=== PATIENT | male | born 1990 | race Caucasian/White ===

== ENCOUNTER 2018-05-02 21:33 | Emergency (ER) | payer OTHER ==
[2018-05-02 22:04] LABS: BASOPHILS # (AUTO) 0.1 10^3/uL (0.0-0.1); EOSINOPHILS # (AUTO) 0.2 10^3/uL (0.0-0.7); EOSINOPHILS % (AUTO) 2.8 %; HGB - HEMOGLOBIN 15.9 g/dL (14.0-18.0); LYMPHOCYTES # (AUTO) 3.9 10^3/uL (1.5-3.5); LYMPHOCYTES % (AUTO) 49.8 %; MEAN CORPUSCULAR HEMOGLOBIN 29.9 pg (27.0-31.0); MEAN CORPUSCULAR HGB CONC 34.4 g/dL (32.0-36.0); MEAN CORPUSCULAR VOLUME 86.7 fL (80.0-94.0); MEAN PLATELET VOLUME 8.7 fL (7.4-11.4); MONOCYTES # (AUTO) 0.9 10^3/uL (0.0-1.0); MONOCYTES % (AUTO) 11.9 %; NEUTROPHILS # (AUTO) 2.7 10^3/uL (1.5-6.6); NEUTROPHILS % (AUTO) 34.5 %; PLT - PLATELET COUNT 239 10^3/uL (130-450); RED BLOOD COUNT 5.32 10^6/uL (4.70-6.10); RED CELL DISTRIBUTION WIDTH 13.1 % (12.0-15.0); WHITE BLOOD COUNT 7.9 x10^3/uL (4.8-10.8)
[2018-05-02 22:11] LABS: ALBUMIN 4.1 g/dL (3.2-5.5); ALBUMIN/GLOBULIN RATIO 1.1 (1.0-2.2); BILIRUBIN,TOTAL 0.8 mg/dL (0.2-1.0); CALCIUM 9.4 mg/dL (8.5-10.3); TOTAL PROTEIN 7.9 g/dL (6.7-8.2)
--- NOTE | 2018-05-02 23:06 | ED Physician Documentation ---
PD HPI CHEST PAIN - Stated complaint Stated Complaint: RAPID HEART BEAT/NAUSEA - Chief complaint Chief Complaint: Cardiac - History obtained from History obtained from: Patient - History of Present Illness Timing - onset: Last night Timing - onset during: Rest Timing - details: Abrupt onset, Intermittant Pain level max: 9 Pain level now: 2 Quality: Pain Location: Left chest, Other (left chest at present, but varies in location since starting 2 days ago (left, right, midline chest, sometimes across entire chest)) Radiation: Other (paresthesias in upper extremities (either, sometimes both)) Improved by: Nothing Worsened by: Exertion Associated symptoms: No: Shortness of air, Diaphoresis, Nausea, Vomiting Similar symptoms before: Has not had sx before Recently seen: Not recently seen Review of Systems Constitutional: reports: Reviewed and negative Cardiac: reports: Chest pain / pressure. denies: Palpitations, Pedal edema, Calf pain Respiratory: reports: Reviewed and negative GI: reports: Reviewed and negative Skin: denies: Rash PD PAST MEDICAL HISTORY - Past Medical History Past Medical History: No - Present Medications Home Medications: Ambulatory Orders Medication Instructions Recorded Confirmed No Known Home Medications [No 05/02/18 05/02/18 Known Home Medications] - Allergies Allergies/Adverse Reactions: Allergies Allergy/AdvReac Type Severity Reaction Status Date / Time No Known Drug Allergies Allergy Verified 05/02/18 21:44 - Social History Does the pt smoke?: No Smoking Status: Never smoker PD ED PE NORMAL - Vitals Vital signs reviewed: Yes - General General: Alert and oriented X 3, Well developed/nourished - HEENT HEENT: Moist mucous membranes - Cardiac Cardiac: RRR, No murmur, No gallop, No rub - Respiratory Respiratory: No respiratory distress, Clear bilaterally - Abdomen Abdomen: Normal bowel sounds, Soft, Non tender, Non distended - Back Back: No CVA TTP - Extremities Extremities: No edema Results - Vitals Vitals: Oxygen O2 Source Room air - EKG (time done) No standard instances Rate: Rate (enter#) (77) Rhythm: NSR [place]: Normal Intervals: Normal [place] QRS: Normal Ischemia: Normal ST segments - Labs Labs: Laboratory Tests 05/02/18 05/02/18 05/02/18 21:55 21:55 21:55 WBC 7.9 RBC 5.32 Hgb 15.9 Hct 46.1 MCV 86.7 MCH 29.9 MCHC 34.4 RDW 13.1 Plt Count 239 MPV 8.7 Neut # (Auto) 2.7 Lymph # (Auto) 3.9 H [place] # (Auto) 0.9 Eos # (Auto) 0.2 Baso # (Auto) 0.1 Absolute Nucleated RBC 0.01 Nucleated RBC % 0.1 Sodium 134 L Potassium 3.3 L Chloride 100 L Carbon Dioxide 24 Anion Gap 10.0 BUN 14 Creatinine 1.0 Estimated GFR (MDRD) 88 L Glucose 115 H Calcium 9.4 Total Bilirubin 0.8 AST 42 ALT 81 H Alkaline Phosphatase 59 Troponin I < 0.04 Total Protein 7.9 Albumin 4.1 Globulin 3.8 Albumin/Globulin Ratio 1.1 Lipase 29 - Rads (name of study) chest xray Radiology: Prelim report reviewed, See rad report PD MEDICAL DECISION MAKING - ED course Complexity details: reviewed results, re-evaluated patient, considered differential, d/w patient - Sepsis Event Vital Signs: Oxygen O2 Source Room air Departure - Departure Disposition: 01 Home, Self Care Clinical Impression: Chest pain Qualifiers: Chest pain type: unspecified Qualified Code(s): R07.9 - Chest pain, unspecified Condition: Good Instructions: ED Chest Pain Atypical Unkn Cause Follow-Up: [facility] [Provider Group] Discharge Date/Time: 05/02/18 23:44
--- NOTE | 2018-05-02 23:34 | XRAY Report ---
Procedure Date: 05/02/2018 Accession Number: [id number] / [id number] Procedure: XR - Chest 1 View X-Ray CPT Code: 85337 FULL RESULT: EXAM: CHEST RADIOGRAPHY EXAM DATE: 05/02/2018 11:17 PM. CLINICAL HISTORY: Chest pain. COMPARISON: None. TECHNIQUE: 1 view. FINDINGS: Lungs/Pleura: No focal opacities evident. No pleural effusion. No pneumothorax. Mediastinum: Within exam limitations, the cardiomediastinal contour is normal. Other: None. IMPRESSION: Normal single view chest. RADIA
[2018-05-02 23:44] VITALS: BP 132/76
== END 2018-05-02 23:44 | disposition home or self-care (01) ==
LOC: ED 21:33
DX: R07.9 Chest pain, unspecified (principal)
CPT/HCPCS: 36415; 71045; 80053; 83690; 84484; 85025; 93005; 99283

== ENCOUNTER 2018-05-06 13:40 | Emergency (ER) | payer OTHER ==
[2018-05-06] MEDS ORDERED: KETOROLAC 60 MG/2 ML VIAL IVP STA (13:59)
--- NOTE | 2018-05-06 14:04 | ED Physician Documentation ---
History of Present Illness - Stated complaint Stated Complaint: MID CHEST PX/SOA/STOMACH PX - Chief complaint Chief Complaint: Cardiac - Additonal information Additional information: hx from pt 27 y/o m no sig fhx CAD, no HTN, no DM, borderline HLD, prior smoker to ED for cp and soa and feeling light headed (worse with moving head) since eating fajitas last night about 7 PM no fever no cough no NVD no leg swelling no recent travel seen for similar sx last week - per pt wup was neg kids sick with URI sx injured his sternum a few weeks ago, seemed better, now this Review of Systems Constitutional: denies: Fever, Chills Cardiac: reports: Chest pain / pressure Respiratory: reports: Dyspnea. denies: Cough GI: reports: Abdominal Pain (upper). denies: Nausea, Vomiting, Diarrhea Skin: reports: Rash (heat rash since going to the [place]) Musculoskeletal: denies: Back pain, Extremity pain, Extremity swelling Endocrine: denies: Easy bruising / bleeding Immunocompromised: denies: Immunocompromised PD PAST MEDICAL HISTORY - Present Medications Home Medications: Ambulatory Orders Medication Instructions Recorded Confirmed Ibuprofen [Motrin] 400 mg PO Q6H PRN #30 tablet 05/06/18 Meclizine [Antivert] 25 mg PO Q6H PRN #20 tablet 05/06/18 raNITIdine [Zantac] 150 mg PO BID #60 tablet 05/06/18 - Allergies Allergies/Adverse Reactions: Allergies Allergy/AdvReac Type Severity Reaction Status Date / Time No Known Drug Allergies Allergy Verified 05/06/18 13:51 - Social History Does the pt smoke?: No Smoking Status: Never smoker Does the pt have substance abuse?: No - POLST Patient has POLST: No PD ED PE NORMAL - Vitals Vital signs reviewed: Yes - Cardiac Cardiac: RRR - Respiratory Respiratory: No respiratory distress, Clear bilaterally - Abdomen Abdomen: Soft, Other (mild upper abd TTP) - Derm Derm: Other (follicular type rash to torso, no petecchiae purpura vesicles shingles) - Extremities Extremities: No edema, No calf tenderness / cord - Neuro Neuro: Alert and oriented X 3 Results - Vitals Vitals: Vital Signs - 24 hr 05/06/18 05/06/18 05/06/18 13:48 14:56 16:19 Temperature 36.4 C L Heart Rate 71 69 57 L Respiratory 16 11 L 20 Rate Blood Pressure 144/84 H 138/87 H 127/85 H O2 Saturation 96 98 98 Oxygen O2 Source Room air - EKG (time done) 1350 Rate: Rate (enter#) Rhythm: NSR [place]: Normal Ischemia: Other (isolated Q in III) - Labs Labs: Laboratory Tests 05/06/18 05/06/18 05/06/18 14:10 14:10 14:10 WBC 5.6 RBC 5.33 Hgb 15.9 Hct 45.5 MCV 85.3 MCH 29.9 MCHC 35.0 RDW 12.9 Plt Count 203 MPV 8.9 Neut # (Auto) 2.6 Lymph # (Auto) 2.3 [place] # (Auto) 0.5 Eos # (Auto) 0.1 Baso # (Auto) 0.0 Absolute Nucleated RBC 0.00 Nucleated RBC % 0.0 Sodium 138 Potassium 3.7 Chloride 104 Carbon Dioxide 27 Anion Gap 7.0 BUN 14 Creatinine 0.9 Estimated GFR (MDRD) 100 Glucose 111 H Calcium 9.4 Total Bilirubin 1.0 AST 28 ALT 84 H Alkaline Phosphatase 55 Troponin I < 0.04 Total Protein 7.8 Albumin 4.0 Globulin 3.8 Albumin/Globulin Ratio 1.1 Lipase 27 - Rads (name of study) CXR Radiology: See rad report (neg) RUQ sono Radiology: See rad report (no biliary dx) CTPA Radiology: See rad report (no PE, atelectasis) PD MEDICAL DECISION MAKING - Sepsis Event Vital Signs: Vital Signs - 24 hr 05/06/18 05/06/18 05/06/18 13:48 14:56 16:19 Temperature 36.4 C L Heart Rate 71 69 57 L Respiratory 16 11 L 20 Rate Blood Pressure 144/84 H 138/87 H 127/85 H O2 Saturation 96 98 98 Oxygen O2 Source Room air Departure - Departure Disposition: 01 Home, Self Care Clinical Impression: Pleurisy Condition: Good Instructions: ED Chest Pain Pleurisy Follow-Up: Rai Sinclair ARNP [Primary Care Provider] - Prescriptions: Ibuprofen [Motrin] 400 mg PO Q6H PRN #30 tablet PRN Reason: Pain Meclizine [Antivert] 25 mg PO Q6H PRN #20 tablet PRN Reason: Dizziness raNITIdine [Zantac] 150 mg PO BID #60 tablet Comments: All of the tests came back fine today The EKG and blood work indicate you have not had a heart attack The chest xray did not show pneumonia or a collapsed lung or any sternal deformity The ultrasound did not show any gallstones The CT scan did not show an aneurysm or tear of your aorta nor a blood clot in your lung. I suspect the pain is due to inflammation of the lining of your chest wall after your recent sternal injury - this is best treated with non steroidal anti- inflammatories such as motrin and a device called an incentive spirometer to help you breathe deeply And sometimes acid reflux can contribute to chest pain so i have also prescribed zantac I also prescribed meclizine to help with the sense of being light headed when you move your head I think it is safe for you to go home [place]
[2018-05-06 14:31] LABS: BASOPHILS % (AUTO) 0.5 %; EOSINOPHILS # (AUTO) 0.1 10^3/uL (0.0-0.7); EOSINOPHILS % (AUTO) 2.1 %; HGB - HEMOGLOBIN 15.9 g/dL (14.0-18.0); LYMPHOCYTES # (AUTO) 2.3 10^3/uL (1.5-3.5); LYMPHOCYTES % (AUTO) 40.3 %; MEAN CORPUSCULAR HEMOGLOBIN 29.9 pg (27.0-31.0); MEAN CORPUSCULAR VOLUME 85.3 fL (80.0-94.0); MEAN PLATELET VOLUME 8.9 fL (7.4-11.4); MONOCYTES # (AUTO) 0.5 10^3/uL (0.0-1.0); MONOCYTES % (AUTO) 9.8 %; NEUTROPHILS # (AUTO) 2.6 10^3/uL (1.5-6.6); NEUTROPHILS % (AUTO) 47.3 %; PLT - PLATELET COUNT 203 10^3/uL (130-450); RED BLOOD COUNT 5.33 10^6/uL (4.70-6.10); RED CELL DISTRIBUTION WIDTH 12.9 % (12.0-15.0); WHITE BLOOD COUNT 5.6 x10^3/uL (4.8-10.8)
--- NOTE | 2018-05-06 14:31 | XRAY Report ---
Procedure Date: 05/06/2018 Accession Number: [id number] / [id number] Procedure: XR - Chest 2 View X-Ray CPT Code: 86718 FULL RESULT: EXAM: CHEST RADIOGRAPHY EXAM DATE: 05/06/2018 02:20 PM. CLINICAL HISTORY: Chest pain. COMPARISON: CHEST 1 VIEW 05/02/2018. TECHNIQUE: 2 views. FINDINGS: Lungs/Pleura: No focal opacities evident. No pleural effusion. No pneumothorax. Normal volumes. Mediastinum: Heart and mediastinal contours are unremarkable. Other: None. IMPRESSION: Negative chest RADIA
[2018-05-06 14:43] LABS: ALBUMIN/GLOBULIN RATIO 1.1 (1.0-2.2); CALCIUM 9.4 mg/dL (8.5-10.3); CREATININE 0.9 mg/dL (0.6-1.2); TOTAL PROTEIN 7.8 g/dL (6.7-8.2)
[2018-05-06] MEDS ORDERED: SODIUM CHLORIDE 0.9% 1,000 ML IV ONE (15:48)
--- NOTE | 2018-05-06 15:49 | Ultrasound Report ---
Procedure Date: 05/06/2018 Accession Number: [id number] / [id number] Procedure: US - Abdomen Limited CPT Code: FULL RESULT: EXAM: ABDOMEN ULTRASOUND LIMITED, RUQ EXAM DATE: 05/06/2018 03:33 PM. CLINICAL HISTORY: Abdominal pain after eating COMPARISON: None. TECHNIQUE: Real-time scanning was performed with static images obtained. FINDINGS: Liver: Heterogeneous, echogenic parenchyma, compatible with steatosis, with small geographic areas of fatty sparing adjacent to the gallbladder. Main portal vein flow: Hepatopetal. Gallbladder: Normal. No stones, wall thickening, or sonographic Merino's sign. Biliary System: CBD measures 2-3 mm. No intrahepatic or extrahepatic ductal dilatation. Right Kidney: 10.7 cm in length. Normal parenchymal echotexture. No visualized shadowing stones or hydronephrosis. IMPRESSION: 1. Steatotic liver. 2. Otherwise unremarkable right upper quadrant ultrasound. Specifically, no cholelithiasis or sonographic evidence for acute cholecystitis. RADIA
[2018-05-06] MEDS ORDERED: MECLIZINE 12.5 MG TABLET PO STA (17:14)
[2018-05-06] MEDS ORDERED: IOPAMIDOL-300 100 ML VIAL ONE (17:33)
[2018-05-06] MEDS ORDERED: IOPAMIDOL-300 100 ML VIAL IVP ONE (18:02)
--- NOTE | 2018-05-06 18:30 | CT Report ---
Procedure Date: 05/06/2018 Accession Number: [id number] / [id number] Procedure: CT - Chest Angio (PE) CPT Code: FULL RESULT: EXAM: CT ANGIOGRAM CHEST EXAM DATE: 05/06/2018 06:00 PM. CLINICAL HISTORY: Pleuritic cp. COMPARISON: None. TECHNIQUE: Routine helical imaging was performed through the chest in the pulmonary arterial phase. IV Contrast: 80 cc Isovue 300. Reconstructions: Coronal 3-D MIP reconstructions.Sagittal and coronal. In accordance with CT protocol optimization, one or more of the following dose reduction techniques were utilized for this exam: automated exposure control, adjustment of mA and/or KV based on patient size, or use of iterative reconstructive technique. FINDINGS: Pulmonary Arteries: Diagnostic quality: Adequate through the segmental arteries. No evidence for acute or chronic pulmonary emboli. The main pulmonary artery is normal in size. Lungs/Pleura: No consolidative process. There is mild linear basilar atelectasis. Negative for pleural effusion and pneumothorax. Airways appear normal. Mediastinum: Normal. No cardiac enlargement or adenopathy. Thoracic Aorta: Unremarkable. Upper Abdomen: Unremarkable. Other: None. IMPRESSION: 1. Negative for pulmonary embolism. 2. Mild basilar atelectasis. Lungs otherwise clear. RADIA
[2018-05-06 19:45] VITALS: BP 157/90
== END 2018-05-06 19:54 | disposition home or self-care (01) ==
LOC: ED 13:40
DX: R09.1 Pleurisy (principal); J98.11 Atelectasis; S29.9XXA Unspecified injury of thorax, initial encounter
CPT/HCPCS: 36415; 71046; 71275; 76705; 80053; 83690; 84484; 85025; 93005; 96361; 96374; 99283; A9270; Q9967

== ENCOUNTER 2018-05-18 13:44 | Emergency (ER) | payer OTHER ==
--- NOTE | 2018-05-18 13:54 | ED Physician Documentation ---
PD HPI URI - Stated complaint Stated Complaint: SORE THROAT - History obtained from History obtained from: Patient - History of Present Illness Timing - onset: Yesterday (Sore throat with high fever since last night. Also noted bladder pain last night which is gone now. He has myalgias but no runny nose or cough.) Review of Systems Ten Systems: 10 systems reviewed and negative Constitutional: reports: Fever, Chills, Fatigue Nose: denies: Rhinorrhea / runny nose, Congestion Throat: reports: Sore throat Respiratory: denies: Dyspnea, Cough GI: denies: Abdominal Pain PD PAST MEDICAL HISTORY - Present Medications Home Medications: Ambulatory Orders Medication Instructions Recorded Confirmed Ibuprofen [Motrin] 400 mg PO Q6H PRN #30 tablet 05/06/18 Meclizine [Antivert] 25 mg PO Q6H PRN #20 tablet 05/06/18 raNITIdine [Zantac] 150 mg PO BID #60 tablet 05/06/18 Penicillin V Potassium 500 mg PO QID #40 tablet 05/18/18 - Allergies Allergies/Adverse Reactions: Allergies Allergy/AdvReac Type Severity Reaction Status Date / Time No Known Drug Allergies Allergy Verified 05/18/18 13:54 - Social History Does the pt smoke?: No Smoking Status: Never smoker Does the pt have substance abuse?: No - POLST Patient has POLST: No PD ED PE NORMAL - Vitals Vital signs reviewed: Yes - General General: Alert and oriented X 3, No acute distress - HEENT HEENT: Other (Red OP, mild exudates, no swelling) - Neck Neck: Supple, no meningeal sign, No bony TTP, No adenopathy - Cardiac Cardiac: RRR, No murmur - Respiratory Respiratory: No respiratory distress, Clear bilaterally - Abdomen Abdomen: Non tender - Derm Derm: No rash - Neuro Neuro: Alert and oriented X 3, Normal speech - Psych Psych: Normal mood, Normal affect Results - Vitals Vitals: Vital Signs - 24 hr 05/18/18 13:45 Temperature 36 C L Heart Rate 108 H Respiratory 18 Rate Blood Pressure 150/89 H O2 Saturation 97 Oxygen O2 Source Room air - Labs Labs: Laboratory Tests 05/18/18 05/18/18 14:10 14:10 Urine Color YELLOW Urine Clarity CLEAR Urine pH 6.5 Ur Specific [place] <=1.005 Urine Protein NEGATIVE Urine Glucose (UA) NEGATIVE Urine Ketones NEGATIVE Urine Occult Blood NEGATIVE Urine Nitrite NEGATIVE Urine Bilirubin NEGATIVE Urine Urobilinogen 0.2 (NORMAL) Ur Leukocyte Esterase NEGATIVE Ur Microscopic Review NOT INDICATED Urine Culture Comments NOT INDICATED Group A Strep Rapid POSITIVE H PD MEDICAL DECISION MAKING - Sepsis Event Vital Signs: Vital Signs - 24 hr 05/18/18 13:45 Temperature 36 C L Heart Rate 108 H Respiratory 18 Rate Blood Pressure 150/89 H O2 Saturation 97 Oxygen O2 Source Room air Departure - Departure Disposition: Home, Self Care Clinical Impression: Strep pharyngitis Condition: Good Record reviewed to determine appropriate education?: Yes Instructions: ED Strep Pharyngitis Conf Prescriptions: Penicillin V Potassium 500 mg PO QID #40 tablet Comments: Your blood pressure was elevated today on check into the emergency department. This does not mean that you have hypertension, it is a common phenomenon to come to the emergency department and have elevated blood pressure. I recommend that you see your primary care physician within the week to have it rechecked when you are feeling better. Forms: Activity restrictions
[2018-05-18 14:13] LABS: BILIRUBIN,URINE NEGATIVE (NEGATIVE); GLUCOSE, URINE (UA) NEGATIVE (NEGATIVE); KETONES,URINE (UA) NEGATIVE (NEGATIVE); LEUKOCYTE ESTERASE, URINE NEGATIVE (NEGATIVE); NITRITE,URINE NEGATIVE (NEGATIVE); OCCULT BLOOD,URINE NEGATIVE (NEGATIVE); PH,URINE 6.5 PH (5.0-7.5); PROTEIN,URINE NEGATIVE (NEGATIVE); UROBILINOGEN,URINE 0.2 (NORMAL) E.U./dL (NORMAL)
[2018-05-18 14:15] LABS: CLARITY,URINE CLEAR (CLEAR)
[2018-05-18] MEDS ORDERED: PENICILLIN VK 250 MG TABLET PO STA (15:02)
[2018-05-18 15:11] VITALS: BP 128/85
== END 2018-05-18 15:11 | disposition home or self-care (01) ==
LOC: ED 13:44
DX: J02.0 Streptococcal pharyngitis (principal); R03.0 Elevated blood-pressure reading, without diagnosis of hypertension
CPT/HCPCS: 81003; 87430; 99283; A9270; 81001; 87086

== ENCOUNTER 2018-07-10 12:22 | Emergency (ER) | payer OTHER ==
--- NOTE | 2018-07-10 13:10 | ED Physician Documentation ---
PD HPI HEENT - Stated complaint Stated Complaint: SORE THROAT - Chief complaint Chief Complaint: Heent - History obtained from History obtained from: Patient - History of Present Illness Timing - onset: Other (Sore throat since yesterday with fever. No cough or runny nose. He had a remote tonsillectomy around age 10 and had strep a couple of months ago. Since that strep throat a couple months ago with which he was treated with antibiotics he has had stomach cramps and diarrhea. The cramps are better after taking omeprazole. The diarrhea is persistent.) Review of Systems Constitutional: denies: Fever, Chills Cardiac: reports: Chest pain / pressure (chronic, s/p w/u with CT/EKG). denies: Palpitations Respiratory: denies: Dyspnea, Cough PD PAST MEDICAL HISTORY - Past Surgical History Past Surgical History: Yes HEENT: Tonsil/Adenoidectomy - Present Medications Home Medications: Ambulatory Orders Medication Instructions Recorded Confirmed Ibuprofen [Motrin] 400 mg PO Q6H PRN #30 tablet 05/06/18 Meclizine [Antivert] 25 mg PO Q6H PRN #20 tablet 05/06/18 raNITIdine [Zantac] 150 mg PO BID #60 tablet 05/06/18 Penicillin V Potassium 500 mg PO QID #40 tablet 05/18/18 Stool Studies 1 unit TD ONCE #1 07/10/18 - Allergies Allergies/Adverse Reactions: Allergies Allergy/AdvReac Type Severity Reaction Status Date / Time No Known Drug Allergies Allergy Verified 07/10/18 12:32 - Social History Does the pt smoke?: No Smoking Status: Never smoker Does the pt drink ETOH?: Yes Does the pt have substance abuse?: No - Immunizations Immunizations are current?: No Immunizations: TDAP current <10years - POLST Patient has POLST: No PD ED PE NORMAL - Vitals Vital signs reviewed: Yes - General General: Alert and oriented X 3, No acute distress - HEENT HEENT: Pharynx benign - Neck Neck: Supple, no meningeal sign, No bony TTP - Abdomen Abdomen: Soft, Non tender - Derm Derm: No rash - Neuro Neuro: Alert and oriented X 3, Normal speech Results - Vitals Vitals: Vital Signs - 24 hr 07/10/18 12:29 Temperature 36.3 C L Heart Rate 100 Respiratory 16 Rate Blood Pressure 125/90 H O2 Saturation 95 Oxygen O2 Source Room air - Labs Labs: Laboratory Tests 07/10/18 12:30 Group A Strep Rapid Negative PD MEDICAL DECISION MAKING - ED course ED course: 27-year-old with sore throat as his chief complaint, strep negative and exam benign. We will do a culture. Somewhat more concerning is 2 months of diarrhea after a course of antibiotics. He is unable to produce a stool sample here and is given a requisition for stool culture and C. difficile. - Sepsis Event Vital Signs: Vital Signs - 24 hr 07/10/18 12:29 Temperature 36.3 C L Heart Rate 100 Respiratory 16 Rate Blood Pressure 125/90 H O2 Saturation 95 Oxygen O2 Source Room air Departure - Departure Disposition: 01 Home, Self Care Clinical Impression: Viral pharyngitis Diarrhea Qualifiers: Diarrhea type: unspecified type Qualified Code(s): R19.7 - Diarrhea, unspecified Condition: Good Record reviewed to determine appropriate education?: Yes Instructions: ED Pharyngitis Viral Report Pending Prescriptions: Stool Studies 1 unit TD ONCE #1 Comments: Continue her current medications. We will call if the strep culture is positive. Drop a sample of the diarrhea off in the lab in the supplied containers when able with the lab requisition. Forms: Activity restrictions
[2018-07-10 13:30] VITALS: BP 135/68
== END 2018-07-10 13:30 | disposition home or self-care (01) ==
LOC: ED 12:22
DX: J02.9 Acute pharyngitis, unspecified (principal); R19.7 Diarrhea, unspecified
CPT/HCPCS: 87070; 87430; 99282; 99283

== ENCOUNTER 2018-07-11 08:00 | Outpatient (CLI) | payer OTHER | END 2018-07-11 08:01 | disposition home or self-care (01) | LOC: LAB.R 08:00 | PROVIDERS: ATTEND Emergency Medicine | DX: R19.7 Diarrhea, unspecified (principal) | CPT/HCPCS: 87045; 87046; 87177; 87209; 87493 ==